=== PATIENT | female | born 1985 ===

== ENCOUNTER 2020-05-28 18:12 | Emergency (ER) | payer SELFPAY ==
[2020-05-29 14:12] LABS: SARS-CoV-2 MS2 Positive; SARS-CoV-2 N Gene Negative; SARS-CoV-2 S Gene Negative; SARS-CoV-2 by NAA Not Detected (NotDetected); SARS-CoV-2 orf1ab Negative
== END 2020-05-28 18:56 | disposition home or self-care (01) ==
LOC: ERS 18:12
DX: R50.9 Fever, unspecified (principal); R52 Pain, unspecified; Z20.828 Contact with and (suspected) exposure to other viral communicable diseases
CPT/HCPCS: 87635; 99283; U0003